=== PATIENT | female | born 1965 | race Caucasian/White ===

== ENCOUNTER → 2017-10-09 13:50 | Outpatient (CLI) | payer BC, SELFPAY ==
[2017-10-09 15:18] LABS: Estradiol 11.1 pg/mL
[2017-10-09 15:25] LABS: Progesterone Level 8.58 ng/mL (See Comment)
[2017-10-13 16:06] LABS: HPV Reflexed? NOT INDICATED
== END ==
PROVIDERS: Visit Provider Obstetrics & Gynecology
DX: N95.1 Menopausal and female climacteric states (principal); Z12.4 Encounter for screening for malignant neoplasm of cervix
CPT/HCPCS: 36415; 82670; 84144; 84403; 88175; G0145

== ENCOUNTER → 2018-12-29 13:46 | Outpatient (CLI) | payer BC, SELFPAY ==
[2018-12-29 16:10] LABS: Estradiol < 11.0 pg/mL
[2018-12-29 16:34] LABS: Progesterone Level 5.86 ng/mL (See Comment)
[2019-01-03 14:22] LABS: HPV Reflexed? NOT INDICATED
== END ==
PROVIDERS: Visit Provider Obstetrics & Gynecology
DX: Z12.4 Encounter for screening for malignant neoplasm of cervix (principal); N95.1 Menopausal and female climacteric states
CPT/HCPCS: 82670; 84144; 88175; G0145

== ENCOUNTER → 2020-02-08 | Outpatient (CLI) | payer BC, SELFPAY ==
[2020-02-08 18:16] LABS: Estradiol 14.5 pg/mL
[2020-02-08 18:20] LABS: Progesterone Level 5.08 ng/mL (See Comment)
== END | disposition home or self-care (01) ==
LOC: WOBLAB 16:47
PROVIDERS: Visit Provider Obstetrics & Gynecology
DX: N95.1 Menopausal and female climacteric states (principal)
CPT/HCPCS: 36415; 82627; 82670; 84144; 84403; 82626